=== PATIENT | male | born 1940 | race Caucasian/White ===

== ENCOUNTER 2017-08-14 21:53 | Emergency (ER) | payer OTHER, MEDICARE ==
--- NOTE | 2017-08-15 10:56 | ER ---
DATE OF SERVICE: 08/14/2017 HISTORY OF PRESENT ILLNESS: A 77-year-old male who comes in for a recheck involving some lab work that was done today. The patient was at the [facility] in [place]. He had his routine labs done and was called when he was almost home, [place], and told that he had a very low magnesium level. He was told to come and have it rechecked, and if it was still low to have it treated. The patient states that he feels fine. He has not had any problems with feeling tired or sick. He has not had any problems with chest discomfort or irregular pulse symptoms. The patient states that he has had some issues with his knee. 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 He has been on amoxicillin for over 2 years for this. He has a lot of issues with diarrhea because of it. The patient states that he otherwise feels okay. OBJECTIVE: GENERAL APPEARANCE: The patient is awake and alert. He is pleasant and talkative. VITAL SIGNS: Reviewed. Blood pressure 133/57. He is afebrile. Pulse is 69, respirations are 16, O2 sats are 93% on room air. LUNGS: Clear. CARDIAC: Heart sounds distinct without murmurs. ABDOMEN: Soft, protuberant, nontender to palpation. Bowel sounds are present. SKIN: Warm and dry. LABORATORY DATA: CBC shows a white count of 12.5, otherwise unremarkable. Comprehensive metabolic panel shows potassium and calcium levels are normal. Magnesium level is extremely low at 0.5. DIAGNOSIS: Hypomagnesium. TREATMENT PLAN: The patient will be given magnesium 1 g IV here in the emergency room. He will be discharged home. He is to purchase [id number] Slow-Mag tablets in the morning and take 4-6 of them a day and I advised the patient to call his doctor back at the [facility] tomorrow to inform that person of the current test results and treatment plan. The patient is here with his . They have no further questions. CRS/MODL /[id number] LULU
== END 2017-08-15 01:27 | disposition home or self-care (01) ==
LOC: LB.ED 21:53
DX: E83.42 Hypomagnesemia (principal)
CPT/HCPCS: 36415; 80053; 83735; 85025; 93005; 96365; 99283-25; J3475

== ENCOUNTER 2019-01-21 20:19 | Emergency (ER) | payer OTHER, MEDICARE ==
--- NOTE | 2019-01-21 21:06 | EDM.PDOC ---
ED HPI GENERAL MEDICAL PROBLEM - General Chief Complaint: General Stated Complaint: CHEST OR EPIGASTRIC PAIN Time Seen by Provider: 01/21/19 21:06 Source of Information: Reports: Patient, Family - History of Present Illness INITIAL COMMENTS - FREE TEXT/NARRATIVE: This is a 78yo M here for epigastric pain and tenderness. He states the symptoms started days ago with acute nausea and vomiting. He then had some diarrhea. He has had a normal BM once today and has eaten very little the past few days so he has not had to vomit. He denies any other symptoms at this time. Onset: Gradual Duration: Day(s):, Improving Location: Reports: Abdomen Severity: Mild Improves with: Reports: None Worsens with: Reports: None - Related Data Allergies Allergy/AdvReac Type Severity Reaction Status Date / Time metformin [From Glucophage] Allergy Diarrhea Verified 08/14/17 23:05 Past Medical History HEENT History: Reports: Cataract, Other (See Below) Other HEENT History: wears glasses for reading and driving Cardiovascular History: Reports: Blood Clots/VTE/DVT, High Cholesterol, Hypertension, Other (See Below) Other Cardiovascular History: Blood clots after surgery of the knee Respiratory History: Reports: Other (See Below) Other Respiratory History: Had nodules in the lungs and was on surveillance with CT of the chest every 6 months (it has stop now) Gastrointestinal History: Reports: Chronic Diarrhea, Other (See Below) Other Gastrointestinal History: Had loose stools for the previous month Musculoskeletal History: Reports: Other (See Below) Other Musculoskeletal History: 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 ED EXAM, GENERAL - Physical Exam Exam: See Below Exam Limited By: No Limitations General Appearance: Alert, WD/WN, No Apparent Distress Eye Exam: Bilateral Eye: EOMI, PERRL Ears: Normal External Exam Nose: Normal Inspection Throat/Mouth: Normal Inspection Head: Atraumatic, Normocephalic Neck: Normal Inspection Respiratory/Chest: No Respiratory Distress, Lungs Clear, Normal Breath Sounds Cardiovascular: Normal Peripheral Pulses, Regular Rate, Rhythm GI/Abdominal: Normal Bowel Sounds, Soft, Non-Tender Back Exam: Normal Inspection Extremities: Normal Inspection Course - Vital Signs Last Recorded V/S: Last Vital Signs Temp 36.2 C 01/21/19 22:15 Pulse 80 01/21/19 22:15 Resp 20 01/21/19 22:15 BP 119/74 01/21/19 22:15 Pulse Ox 93 L 01/21/19 22:15 - Orders/Labs/Meds Labs: Laboratory Tests 01/21/19 01/21/19 01/21/19 Range/Units 21:06 21:06 21:08 WBC 10.9 (4.0-11.0) K/uL RBC 5.75 (4.50-6.50) M/uL Hgb 16.3 (13.0-18.0) g/dL Hct 50.6 (40.0-54.0) % MCV 88 (76-96) fL MCH 28.3 (27.0-32.0) pg MCHC 32.2 (31.0-35.0) g/dL RDW 14.5 (11.0-16.0) % Plt Count 244 D (150-400) K/uL MPV 10.5 H (6.0-10.0) fL Neut % (Auto) 50.1 (45.0-70.0) % Lymph % (Auto) 29.4 (20.0-40.0) % [place]arton % (Auto) 15.1 H (3.0-10.0) % Eos % (Auto) 5.2 H (1.0-5.0) % Baso % (Auto) 0.2 (0.0-0.5) % Neut # (Auto) 5.44 (2.00-7.50) K/uL Lymph # (Auto) 3.19 (1.50-4.00) K/uL [place]arton # (Auto) 1.64 H (0.20-0.80) K/uL Eos # (Auto) 0.56 H (0.04-0.40) K/uL Baso # (Auto) 0.02 (0.02-0.10) K/uL Sodium 140 (136-145) mmol/L Potassium 4.5 (3.5-5.1) mmol/L Chloride 104 (98-107) mmol/L Carbon Dioxide 27.1 (21.0-32.0) mmol/L Anion Gap 13.4 (5.0-15.0) mmol/L BUN 27 H (8-26) mg/dL Creatinine 1.44 H D (0.70-1.30) mg/dL Est Cr Clr Drug Dosing TNP Estimated GFR (MDRD) 48 L (>60) MLS/MIN BUN/Creatinine Ratio 18.8 (6-25) Glucose 108 H (74-100) mg/dL Calcium 10.5 H (8.5-10.1) mg/dL Magnesium 1.8 (1.8-2.4) mg/dL Total Bilirubin 0.3 (0.0-1.0) mg/dL AST 18 (15-37) U/L ALT 21 (12-78) U/L Alkaline Phosphatase 84 (46-116) U/L Troponin I < 0.017 (0.000-0.060) ng/mL B-Natriuretic Peptide 117 (0-450) pg/mL Total Protein 7.8 (6.4-8.2) g/dL Albumin 3.8 (3.4-5.0) g/dL Globulin 4.0 (2.2-4.2) g/dL Albumin/Globulin Ratio 0.9 (0.8-2.0) TSH, Ultra Sensitive 6.790 H D (0.358-3.740) uIU/mL Departure - Departure Time of Disposition: 22:30 Disposition: Home, Self-Care 01 Condition: Good Clinical Impression: Viral gastroenteritis - Discharge Information Instructions: Coronary Artery Disease, Male, Heart Disease Prevention, Cholelithiasis, [id number], Diverticulosis, Dehydration, Adult Forms: ED Department Discharge Additional Instructions: F/u with primary regarding coronary heart disease for possible stress test. Increase fluids for dehydration. - Problem List & Annotations (1) Viral gastroenteritis SNOMED Code(s): 383614855 Code(s): A08.4 - VIRAL INTESTINAL INFECTION, UNSPECIFIED Status: Acute Priority: High - Problem List Review Problem List Initiated/Reviewed/Updated: Yes - Assessment/Plan Plan: Counseled on hydration and intake. Discussed supportive care and conservative management and f/u as needed if symptoms return. F/u as directed.
--- NOTE | 2019-01-22 09:50 | CT ---
Date of Service: 01/21/19 Clinical Data: epigastric pain UNENHANCED CHEST CT: Multislice acquisition through the chest without IV contrast was performed. No priors. There are mild emphysematous changes throughout both lungs. There is a 9 mm oval-shaped, pleural-based nodule adjacent to the minor fissure on the right. There are linear densities in both lower lungs consistent with linear atelectasis or fibrosis. The lungs are otherwise clear. No pleural effusions. No pneumothorax. The heart size is normal. There are moderate coronary artery calcifications. There are atherosclerotic changes of the thoracic aorta. No aneurysm. No hilar or mediastinal adenopathy. No other significant findings. [address] is recommended to evaluate for stability of the pleural based nodule adjacent to the minor fissure on the right. UNENHANCED ABDOMEN AND PELVIC CT: Multislice acquisition through the abdomen and pelvis without IV or oral contrast was performed. No priors. The unenhanced liver appears normal. No focal hepatic lesions. There are a couple of small calcified gallstones within dependent gallbladder. No pericholecystic fluid. The spleen appears normal. Pancreas is atrophic, otherwise unremarkable. The right and left adrenals appear normal. There are two small low-density lesions in the periphery of the left kidney consistent with renal cysts. The kidneys otherwise appear normal. No nephrocalcinosis or nephrolithiasis. No hydronephrosis or hydroureter. The bladder is partially fluid-filled. It appears normal. The prostate is enlarged. There are calcifications within the prostate consistent with chronic prostatitis. The appendix is not dilated. No evidence of appendicitis. There is diverticulosis of the descending and sigmoid colon. No evidence of diverticulitis. There is mild mural thickening within the duodenum with mild adjacent fat stranding suggesting duodenitis. No free air. No free fluid. No dilated loops of bowel. No adenopathy. No aortic aneurysm. There is degenerative disk disease throughout the lower thoracic and lumbar spine. There is mild anterolisthesis of L4 on L5 and of L5 on S1. No other significant findings. [id number] [facility]
== END 2019-01-21 22:21 | disposition home or self-care (01) ==
LOC: LB.ED 20:19
DX: A08.4 Viral intestinal infection, unspecified (principal); I10 Essential (primary) hypertension; E11.9 Type 2 diabetes mellitus without complications; Z86.718 Personal history of other venous thrombosis and embolism; Z88.8 Allergy status to other drugs, medicaments and biological substances
CPT/HCPCS: 36415; 71250; 74176; 80053; 83735; 83880; 84443; 84484; 85025; 93005; 99285; 99285-25

== ENCOUNTER → 2019-04-24 | Outpatient (CLI) | payer OTHER, MEDICARE | LOC: LB.LAB 12:02 | PROVIDERS: ATTEND Family Medicine | DX: E61.2 Magnesium deficiency (principal); E03.8 Other specified hypothyroidism | CPT/HCPCS: 36415; 80048; 83735; 84443; 86140 ==